=== PATIENT | female | born 1985 | race African-American/Black ===

== ENCOUNTER 2017-03-02 11:31 | Emergency (ER) | payer OTHER ==
[~2017-03-02] VITALS: Ht 152.4 cm; Wt 50.9 kg
[2017-03-02 13:56] VITALS: BP 141/95
== END 2017-03-02 14:02 | disposition home or self-care (01) ==
LOC: EME 11:31
DX: N18.6 End stage renal disease (principal); Z99.2 Dependence on renal dialysis; F17.200 Nicotine dependence, unspecified, uncomplicated
CPT/HCPCS: 99281; 99283